=== PATIENT | female | born 1995 | race Caucasian/White ===

== ENCOUNTER 2018-10-07 17:07 | Emergency (ER) | payer SELFPAY ==
[~2018-10-07] VITALS: Ht 162.6 cm; Wt 54.5 kg
[2018-10-07 17:10] VITALS: BP 143/81; TEMP 97
[2018-10-07] MEDS ORDERED: WELLBUTRIN XL300 M1 PO (17:26)
[2018-10-07 17:37] VITALS: PULSE 69
== END 2018-10-07 17:37 | disposition home or self-care (01) ==
LOC: COL.ER 17:07
DX: J02.9 Acute pharyngitis, unspecified (principal); F41.9 Anxiety disorder, unspecified